=== PATIENT | male | born 1940 | race Caucasian/White ===

== ENCOUNTER 2019-08-26 10:16 | Emergency (ER) | payer OTHER ==
[2019-08-26 10:27] VITALS: BP 142/82; PULSE 69; TEMP 98.3; BMI 25.1
--- NOTE | 2019-08-26 11:14 | PDOC ---
History of Present Illness - General Chief Complaint: Cold Symptoms Stated Complaint: FLU LIKE SYMPTOMS Time Seen by Provider: 08/26/19 11:04 History Source: Patient Exam Limitations: No Limitations Past History - Travel Traveled outside of the country in the last 30 days: No Close contact w/someone who was outside of country & ill: No - Past Medical History Allergies/Adverse Reactions: Allergies Allergy/AdvReac Type Severity Reaction Status Date / Time No Known Allergies Allergy Verified 08/26/19 10:24 Home Medications: Ambulatory Orders Carvedilol Phosphate [Coreg Cr] 20 mg PO DAILY 01/14/12 Esomeprazole Mag Trihydrate [Nexium] 40 mg PO DAILY 01/14/12 Folic Acid 1 mg PO DAILY 01/14/12 Ranolazine [Ranexa] 500 mg PO BID 01/14/12 Saxagliptin HCl [Onglyza] 5 mg PO DAILY 01/14/12 Thiamine HCl 100 mg PO DAILY 01/14/12 Valsartan [Diovan] 160 mg PO DAILY 01/14/12 Zolpidem Tartrate 5 mg PO 01/14/12 Boceprevir [Victrelis] 200 mg PO DAILY #0 capsule 01/15/12 Multivitamin with Minerals [Multiple Vitamin] 1 each PO DAILY #0 tablet Peginterferon Kenn-2A [Pegasys] 180 mcg SQ AM #0 ml 01/15/12 Ribavirin [Rebetol] 200 mg PO DAILY #0 capsule 01/15/12 predniSONE [Deltasone -] 40 mg PO DAILY #7 tablet 05/10/12 Azithromycin [Zithromax 250mg Tablets -] 250 mg PO UTDICT #6 tab 08/26/19 Guaifenesin Dm [Robitussin Dm -] 10 ml PO Q6H #200 ml 08/26/19 predniSONE [Deltasone -] 40 mg PO DAILY #8 tablet 08/26/19 Anemia: Yes COPD: No HTN: Yes Hypercholesterolemia: Yes Liver Disease: Yes (HEP C) - Surgical History Orthopedic Surgery: (left shoulder) - Immunization History Immunization Up to Date: Yes - Psycho Social/Smoking Cessation Hx Smoking Status: No Smoking History: Never smoked Years of Tobacco Use: 0 Number of Cigarettes Smoked Daily: 0 Cigars Per Day: 0 Hx Alcohol Use: No Drug/Substance Use Hx: No Substance Use Type: Alcohol Hx Substance Use Treatment: No Review of Systems - Review of Systems Able to Perform ROS?: Yes Comments:: 08/26/19 11:14 CONSTITUTIONAL: Present: Fever, chills, body aches Absent: diaphoresis, generalized weakness, malaise, loss of appetite HEENT: Present: rhinorrhea, nasal congestion, throat pain. Absent: difficulty swallowing, mouth swelling, ear pain, eye pain, visual Changes CARDIOVASCULAR: Absent: chest pain, loss of consciousness, palpitations, irregular heart rate, peripheral edema RESPIRATORY: Present: Cough Absent: shortness of breath, dyspnea with exertion, orthopnea, wheezing, stridor, hemoptysis GASTROINTESTINAL: Absent: abdominal pain, abdominal distension, nausea, vomiting, diarrhea, constipation, melena, hematochezia SKIN: Absent: rash, itching, pallor NEUROLOGIC: Present: headache Absent: focal weakness or paresthesias, dizziness, unsteady gait, seizure, mental status changes, bladder or bowel incontinence Is the patient limited [place] proficient: No *Physical Exam - Vital Signs Last Vital Signs Temp Pulse Resp BP Pulse Ox 98.3 F 69 17 142/82 96 08/26/19 10:21 08/26/19 10:21 08/26/19 10:21 08/26/19 10:21 08/26/19 10:21 - Physical Exam 08/26/19 11:14 GENERAL: Well developed, well nourished. Awake and alert. No acute distress. HEENT: Normocephalic, atraumatic. PERRLA, EOMI. No conjunctival pallor. Sclera are non- icteric. Moist mucous membranes. Oropharynx is clear. NECK: Supple. Full ROM. No JVD. Carotid pulses 2+ and symmetric, without bruits. No thyromegaly. No lymphadenopathy. CARDIOVASCULAR: Regular rate and rhythm. No murmurs, rubs, or gallops. Distal pulses are 2+ and symmetric. PULMONARY: No evidence of respiratory distress. Lungs clear to auscultation bilaterally with fair aeration to the bases. No wheezing, rales or rhonchi. ABDOMINAL: Soft. Non-tender. Non-distended. No rebound or guarding. No organomegaly. Normoactive bowel sounds. MUSCULOSKELETAL Normal range of motion at all joints. No bony deformities or tenderness. No CVA tenderness. EXTREMITIES: No cyanosis. No clubbing. No edema. No calf tenderness. SKIN: Warm and dry. Normal capillary refill. No rashes. No jaundice. NEUROLOGICAL: Alert, awake, appropriate. Cranial nerves 2-12 intact. No deficits to light touch and temperature in face, upper extremities and lower extremities. No motor deficits in the in face, upper extremities and lower extremities. Normoreflexic in the upper and lower extremities. Normal speech. Toes are down- going bilaterally. Gait is normal without ataxia. PSYCHIATRIC: Cooperative. Good eye contact. Appropriate mood and affect. Medical Decision Making - Medical Decision Making 08/26/19 11:31 Patient is a 78-year-old male with past medical history of hyperlipidemia, hypertension, hep C, [id number] diabetes, who presents to the ER today with cough, congestion, body aches and fevers for 8 days. He states he has been taking Tylenol and cough syrup at home with little relief of his symptoms. He states the fevers mostly come at night. Denies earache, sore throat, chest pain, nausea, vomiting and diarrhea. A/P: Upper respiratory infection On exam lungs with fair aeration of the bases bilaterally. No wheezes, rales or rhonchi. Regular rate and rhythm, S1-S2 present no murmurs rubs or gallops Given length of symptoms and cough, will send for chest x-ray Patient outside of treatment window for influenza. Defer testing Reevaluate 08/26/19 11:54 X-ray as read by [place], atelectatic changes noted at the bases with scarring. Given that the patient is still having fevers at night, will cover for possible pneumonia, atelectasis versus infiltrate vs bronchitis? Z-Prateek sent to patient's pharmacy Steroids given Discharge home with primary care follow-up I discussed the physical exam findings, ancillary test results and final diagnoses with the patient. I answered all of the patient's questions. The patient was satisfied with the care received and felt comfortable with the discharge plan and treatment plan. The Patient agrees to follow up with the primary care physician/specialist within 24-72 hours. Return precautions were given. Discharge - Discharge Information Problems reviewed: Yes Clinical Impression/Diagnosis: URI (upper respiratory infection) Qualifiers: URI type: unspecified viral URI Qualified Code(s): J06.9 - Acute upper respiratory infection, unspecified Condition: Stable Disposition: HOME - Admission No - Follow up/Referral Referrals: Braulio Mai MD [Primary Care Provider] - - Patient Discharge Instructions Patient Printed Discharge Instructions: DI for Viral Upper Respiratory Infection -- Adult Additional Instructions: You have an upper respiratory infection. Take the Z-Praetek and steroids as directed. Drink plenty of fluids. Cough drops and warm tea may help your symptoms as well. Please follow up with her primary care doctor this week. Return to the emergency department if you have difficulty breathing, shortness of breath, worsening pain, nausea, vomiting or if you have any changes in your symptoms. Tiene darnell infeccin de las vas respiratorias superiores. [place] el Z-Prateek y los esteroides segn las indicaciones. Beber mucho lquido. Las pastillas para la tos y el t caliente tambin pueden ayudar con kari sntomas. Shaheen un seguimiento con funk mdico de atencin primaria esta semana. Regrese al departamento de emergencias si tiene dificultad para respirar, falta de aliento, empeoramiento del dolor, nuseas, vmitos o si tiene algn cambio en kari sntomas. - Post Discharge Activity
[2019-08-26] MEDS ORDERED: guaiFENesin/D-METHORPHAN HB 10 ML UNIT-DOSE CUPS PO ONE (11:29)
[2019-08-26] MEDS ORDERED: ACETAMINOPHEN 325 MG TABLET (FP) PO ONE (11:29)
[2019-08-26] MEDS ORDERED: ACETAMINOPHEN 325 MG TABLET (FP) ONE (11:40)
[2019-08-26] MEDS ORDERED: guaiFENesin/D-METHORPHAN HB 10 ML UNIT-DOSE CUPS ONE (11:41)
== END 2019-08-26 12:10 | disposition home or self-care (01) ==
LOC: JERFT 10:16
DX: J06.9 Acute upper respiratory infection, unspecified (principal); B97.89 Other viral agents as the cause of diseases classified elsewhere; I10 Essential (primary) hypertension; E78.00 Pure hypercholesterolemia, unspecified; B18.2 Chronic viral hepatitis C; D64.9 Anemia, unspecified
CPT/HCPCS: 71046-TC-FY; 99281-25